=== PATIENT | male | born 1955 | race Two or more races ===

== ENCOUNTER 2020-07-03 14:05 | Emergency (ER) | payer OTHER ==
[~2020-07-03] VITALS: Ht 162.6 cm; Wt 98.4 kg
[2020-07-03] MEDS ORDERED: SODIUM CHLORIDE 0.9% 500 ML IV ONE (14:30)
[2020-07-03] MEDS ORDERED: LORazepam 2MG/ML-1ML VIAL IV ONE (14:30)
[2020-07-03 17:12] LABS: Basophils # (auto) 0.1 10 ^3/uL (0-0.2); Basophils % (auto) 0.7 % (0.0-2.0); Eosinophils # (auto) 0 10 ^3/uL (0-0.8); Eosinophils % (auto) 0.1 % (0.0-7.0); Hematocrit 45.5 % (41.0-53.0); Hemoglobin 15.9 g/dL (13.5-17.5); Lymphocytes # (auto) 2.1 10 ^3/uL (0.4-5.4); Lymphocytes % (auto) 25.7 % (10.0-50.0); Mean Corpuscular Hemoglobin 32.8 pg (28.0-32.0); Mean Corpuscular Hgb Conc. 34.9 g/dL (32.0-36.0); Mean Corpuscular Volume 94.1 fL (80.0-100.0); Monocytes # (auto) 0.5 10 ^3/uL (0-1.3); Monocytes % (auto) 6.4 % (0.0-12.0); Neutrophils # (auto) 5.5 10 ^3/uL (1.6-8.6); Neutrophils % (auto) 67.1 % (37.0-80.0); Nucleated Red Blood Cells % 0.1 %; Platelet Count (auto) 110 10^3/uL (140-450); Red Blood Cells 4.84 10^6/uL (4.5-5.90); White Blood Cell 8.2 10^3/uL (4.4-10.8)
[2020-07-03 17:27] LABS: Albumin 3.4 g/dL (3.4-5.0); Calcium 9.1 mg/dL (8.5-10.1); Magnesium 2.1 mg/dL (1.6-2.6); Potassium 4.1 mmol/L (3.5-5.1)
[2020-07-03 17:33] LABS: Bilirubin, Total 1.1 mg/dL (0.2-1.0); Total Protein 8.2 g/dL (6.4-8.2)
[2020-07-03 18:06] LABS: BUN/Creatinine Ratio 18.8
[2020-07-04 02:14] LABS: Amphetamine Screen, Urine NEGATIVE (NEGATIVE); Barbiturate Scree,Urine NEGATIVE (NEGATIVE); Benzodiazephine Screen, Urine NEGATIVE (NEGATIVE); Cannabinoid Screen, Urine POSITIVE (NEGATIVE); Cocaine Screen, Urine NEGATIVE (NEGATIVE); Opiate Scree,Urine NEGATIVE (NEGATIVE); Phencyclidine Screen, Urine NEGATIVE (NEGATIVE)
[2020-07-04 02:24] VITALS: BP 148/74
== END 2020-07-04 02:50 | disposition designated cancer center or children's hospital (05) ==
LOC: ER 14:05
DX: R07.89 Other chest pain (principal); Z20.822 Contact with and (suspected) exposure to COVID-19
CPT/HCPCS: 36415; 71046; 76705; 80053; 80307; 83690; 83735; 84484; 85025; 85379; 87426; 93005; 96361; 96374; 99285; J2060; J7030

== ENCOUNTER → 2024-12-29 | Day surgery (SDC) | payer OTHER ==
[~2024-12-29] VITALS: Ht 160 cm; Wt 87.1 kg
[~2024-12-29] MED LIST: ASCO500T11 PO; HYDR12.59 PO; METOCLOPRAMIDE HCL 5MG/ml INJ 2ml VIAL ONE; MISC-2030 PO; ONDANSETRON HCL 4 MG/2 ML VIAL ONE; PROPOFOL 10 MG/ML 20 ML IV ONE; TURM1TAB PO; ZINC100T5 PO
--- NOTE | 2024-12-29 11:38 | DVHHP2 ---
GI H&P Pre-Op Assessment Date: 12/29/24 Chief complaint: Nausea, vomiting, heartburn and cirrhosis HPI: per clinic note Past medical history: per clinic note Past surgical history: per clinic note Family history: per clinic note Physical exam: General: NAD, AAOX3 HEENT: PERRL, no scleral icterus, normal hearing, gums without lesions or bleeding, oropharynx clear without erythema or exudate. Neck: Supple without enlargement of the thyroid, or lymphadenopathy. Chest: Normal size and shape, no tenderness, lung monzon clear to auscultation and percussion, nonlabored breathing. Heart: RRR, no murmur Abdomen: non-distended, no tenderness to palpation, +BS, no hepatosplenomegaly Extremities: no edema Neurological: CN II-XII intact, sensation intact in all extremities, 5+ strength in all extremities Skin: No rashes, No jaundice Assessment: -Nausea, vomiting, heartburn and cirrhosis Plan: - EGD - Risks (bleeding, infection, perforation, reaction to sedation medications and cardiopulmonary arrest) and benefit of the procedure were explained to patient. Patient agrees to undergo the procedure. TAMIKO JOHNSON MD Dec 29, 2024 11:38
[2024-12-29 11:51] VITALS: RESP 21; TEMP 97.6; O2SAT 98
--- NOTE | 2024-12-29 11:56 | DVHOP2 ---
Operative Report DATE OF OPERATION: 12/29/24 PROCEDURE: Upper Endoscopy. PREOPERATIVE INDICATION: The patient is a 69 -year-old male with cirrhosis and hiatal hernia undergoing endoscopy for nausea, vomiting and heartburn. POSTOPERATIVE DIAGNOSES: 1. Mild gastritis. 2. Hiatal hernia 30-37cm. 3. No esophageal varices PROCEDURE PERFORMED BY: Lavon Bateman SCOPE: Olympus videoendoscope. ASA CLASS: 3 PREOPERATIVE MEDICATIONS: MAC with Georges BOG WORKER PROCEDURE IN DETAIL: After obtaining an informed consent, the patient was placed on his back. The patient was then sedated with the above medications. A bite block was placed between his teeth. The endoscope was then passed through the oropharynx, into the esophagus, and through the stomach and pylorus up to the second and third part of the duodenum. The duodenum was normal in appearance. There was mild gastritis. Gastric biopsies were obtained using cold forceps. There was hiatal hernia 30-37 cm. The GE junction was normal in appearance at 30 cm. There was no esophageal varices. The esophagus was normal in appearance. The endoscope was then withdrawn. The patient tolerated the procedure well without difficulty. COMPLICATIONS : None SPECIMENS: Gastric biopsies DISPOSITION: D/C to home PLAN: 1. Await for biopsy result 2. Continue with Protonix. LAVON BATEMAN MD Dec 29, 2024 11:56
--- NOTE | 2024-12-29 11:56 | DVHDS2 ---
Physician Discharge Progress N Final Diagnosis: Mild gastritis, hiatal hernia Operations or Procedures: Operations or Procedures EGD with cold biopsy Condition on Discharge: Good Disposition: Home Discharge Instructions: Diet: Regular Activity: No Restrictions, As Tolerated Medications: Resume previous home medications Follow Up Care: Discharge Statement: "Patient was advised to return to the ER or call 911 if any headaches, dizziness, shortness of breath, chest pain, abdominal pain, bleeding, fevers, or worsening of medical condition. Patient was counseled about treatment plan, medications, possible side effects, patientverbalized understanding. All questions were answered to the best of my ability. This discharge took greater then 30 minutes in planning, reviewing d ocumentation, counseling the patient, and discussing with other team members." TAMIKO JOHNSON MD Dec 29, 2024 11:56
[2024-12-29 12:20] VITALS: BP 104/60; PULSE 66; RESP 20; O2SAT 96
== END | disposition home or self-care (01) ==
LOC: GI 10:55
PROVIDERS: ATTEND Internal Medicine Gastroenterology
DX: R11.2 Nausea with vomiting, unspecified (principal); K21.9 Gastro-esophageal reflux disease without esophagitis; K44.9 Diaphragmatic hernia without obstruction or gangrene; K74.60 Unspecified cirrhosis of liver; K29.50 Unspecified chronic gastritis without bleeding; I10 Essential (primary) hypertension; Z98.890 Other specified postprocedural states; Z79.899 Other long term (current) drug therapy; Z98.42 Cataract extraction status, left eye
CPT/HCPCS: 43239; 88305; 88342; J2405; J2704; J2765; J7030